=== PATIENT | female | born 1960 | race Two or more races ===

== ENCOUNTER 2017-09-09 21:53 | Emergency (ER) | payer MEDICAID ==
[~2017-09-09] VITALS: Ht 157.5 cm; Wt 154.2 kg
[2017-09-10 01:30] VITALS: BP 148/86
[2017-09-10] MEDS: BACLOFEN 10 MG TAB PO ONE (02:04)
== END 2017-09-10 02:27 | disposition home or self-care (01) ==
LOC: EDBD 21:53 → ER 21:53
DX: S13.9XXA Sprain of joints and ligaments of unspecified parts of neck, initial encounter (principal); S23.3XXA Sprain of ligaments of thoracic spine, initial encounter; Z88.6 Allergy status to analgesic agent; V43.52XA Car driver injured in collision with other type car in traffic accident, initial encounter; Y93.89 Activity, other specified; Y92.89 Other specified places as the place of occurrence of the external cause; Y99.8 Other external cause status
CPT/HCPCS: 70450; 72125; 72128

== ENCOUNTER 2020-11-23 14:27 | Inpatient (IN) | payer MEDICAID ==
[~2020-11-23] VITALS: Ht 152.4 cm; Wt 141.0 kg
[2020-11-23] MEDS ORDERED: SODIUM CHLORIDE 0.9% 1,000 ML IV ONE ×2 (15:00)
[2020-11-23] MEDS ORDERED: PROMETHAZINE HCL 25 MG/ML 1ML IV ONE (15:00)
[2020-11-23 16:33] LABS: Basophils # (auto) 0.1 10 ^3/uL (0-0.2); Basophils % (auto) 0.4 % (0.0-2.0); Eosinophils # (auto) 0 10 ^3/uL (0-0.8); Eosinophils % (auto) 0.1 % (0.0-7.0); Hematocrit 37.7 % (36.0-46.0); Hemoglobin 13.4 g/dL (12.2-16.2); Lymphocytes # (auto) 2.9 10 ^3/uL (0.4-5.4); Lymphocytes % (auto) 16.1 % (10.0-50.0); Mean Corpuscular Hemoglobin 30.4 pg (28.0-32.0); Mean Corpuscular Hgb Conc. 35.6 g/dL (32.0-36.0); Mean Corpuscular Volume 85.4 fL (80.0-100.0); Monocytes # (auto) 0 10 ^3/uL (0-1.3); Monocytes % (auto) 0.2 % (0.0-12.0); Neutrophils # (auto) 15.1 10 ^3/uL (1.6-8.6); Neutrophils % (auto) 83.2 % (37.0-80.0); Nucleated Red Blood Cells % 1.1 %; Red Blood Cells 4.41 10^6/uL (4.0-5.20); White Blood Cell 18.2 10^3/uL (4.4-10.8)
[2020-11-23 16:48] LABS: Albumin 2.8 g/dL (3.4-5.0); Potassium 3.3 mmol/L (3.5-5.1)
[2020-11-23 16:53] LABS: BUN/Creatinine Ratio 14.2; Bilirubin, Total 0.5 mg/dL (0.2-1.0)
[2020-11-23] MEDS ORDERED: POTASSIUM CHL 20MEQ/100ML 100 ML IV ONE (17:45)
[2020-11-23] MEDS ORDERED: D5W/ SOD CHL 0.9%/KCL 20MEQ 1,000 ML IV ONE (18:30)
[2020-11-23] MEDS ORDERED: ACETAMINOPHEN 325 MG TAB PO PRN (18:45)
[2020-11-23] MEDS ORDERED: MORPHINE SULFATE INJECTION 2 MG/ML SYRG IV PRN ×2 (18:45)
[2020-11-23] MEDS ORDERED: NITROGLYCERIN 0.4 MG SL TAB SL PRN (18:45)
[2020-11-23 20:53] LABS: Hematocrit 35.3 % (36.0-46.0); Hemoglobin 12.4 g/dL (12.2-16.2)
[2020-11-23] MEDS: PROMETHAZINE HCL 25 MG/ML 1ML IV PRN (21:38)
[2020-11-24] MEDS: METOCLOPRAMIDE HCL 5MG/ml INJ 2ml VIAL IV SCH ×4 (00:36→17:26)
[2020-11-24 00:44] VITALS: BP 139/70
[2020-11-24] MEDS ORDERED: AMLO-489 PO (01:17)
[2020-11-24] MEDS ORDERED: METO-159 PO (01:17)
[2020-11-24] MEDS ORDERED: DOXY100C2 PO (01:17)
[2020-11-24] MEDS ORDERED: ATO40T PO (01:17)
[2020-11-24] MEDS ORDERED: FAMO-12 PO (01:17)
[2020-11-24] MEDS ORDERED: LORA-483 PO (01:17)
[2020-11-24] MEDS ORDERED: MULT-551 OR (01:17)
[2020-11-24] MEDS ORDERED: OXYB5TAB61 PO (01:17)
[2020-11-24] MEDS ORDERED: LOSA-39 PO (01:17)
[2020-11-24] MEDS ORDERED: MONT10TA23 PO (01:17)
[2020-11-24] MEDS ORDERED: SEMA2INJ SC (01:17)
[2020-11-24] MEDS ORDERED: CHOL20007 PO (01:17)
[2020-11-24] MEDS ORDERED: METF-370 PO (01:17)
[2020-11-24] MEDS ORDERED: ALBU0.084 IN (01:17)
[2020-11-24] MEDS ORDERED: BECL80AE11 IN (01:17)
[2020-11-24] MEDS ORDERED: LEVO112T4 PO (01:17)
[2020-11-24] MEDS: ACCU-CHEK COMFORT CURVE STRIP VI SCH ×4 (06:39→21:18)
[2020-11-24] MEDS: InsuLIN REG 1unit/0.01ml Soln (100units/ml) SC SCH ×4 (06:39→21:18)
[2020-11-24] MEDS ORDERED: DEXTROSE (50%) 50ML SYRG IV PRN (06:45)
[2020-11-24] MEDS: PROMETHAZINE HCL 25 MG/ML 1ML IV PRN ×4 (09:26→22:06)
[2020-11-24] MEDS: hydrALAZINE HCL 20 MG/ML VL IV PRN ×2 (12:18→20:58)
[2020-11-24 13:00] VITALS: BP 193/94
[2020-11-24 13:32] LABS: Hematocrit 40.3 % (36.0-46.0); Hemoglobin 13.6 g/dL (12.2-16.2); Mean Corpuscular Hemoglobin 29.4 pg (28.0-32.0); Mean Corpuscular Hgb Conc. 33.8 g/dL (32.0-36.0); Mean Corpuscular Volume 87.1 fL (80.0-100.0); Red Blood Cells 4.63 10^6/uL (4.0-5.20); Red Cell Distribution Width 14.2 % (11.8-14.3); White Blood Cell 18.1 10^3/uL (4.4-10.8)
[2020-11-24 13:40] LABS: BUN/Creatinine Ratio 13.6; Basophils % (manual) 0 (0.0-2.0); Blast Cells 0; Calcium 7.6 mg/dL (8.5-10.1); Eosinophils % (manual) 0 (0-7); Metamyelocytes % 0; Potassium 3.5 mmol/L (3.5-5.1); Promyelocytes % 0; Reactive Lymphocytes 0
[2020-11-24 14:14] LABS: Band Neutrophils % (manual) 14; Lymphocytes % (manual) 7 (10.0-50.0); Monocytes % (manual) 4 (0-12); Myelocytes % 1
[2020-11-24] MEDS ORDERED: ONDANSETRON HCL 4 MG/2 ML VIAL IV PRN (18:15)
[2020-11-24] MEDS ORDERED: SOD CHL 0.9%/ KCL 20MEQ 1,000 ML IV ONE (18:15)
[2020-11-24] MEDS: SOD CHL 0.9%/ KCL 20MEQ 1,000 ML IV SCH (18:39)
[2020-11-24] MEDS ORDERED: cefTRIAXone 1GM/50ML D5W 50 ML IV ONE (18:45)
[2020-11-24] MEDS: ONDANSETRON HCL 4 MG/2 ML VIAL IV PRN (20:58)
[2020-11-24] MEDS: metroNIDAZOLE 500MG/100ML 100 ML IV SCH (21:48)
[2020-11-24 22:00] VITALS: BP 197/79
[2020-11-24 22:03] LABS: Urine Bacteria NONE SEEN /hpf (None Seen); Urine Blood TRACE /uL (Negative); Urine Hyaline Cast FEW /lpf (0 - 2); Urine Mucus FEW (None Seen); Urine Specific Gravity 1.021 (1.001-1.035); Urine WBC 4 /hpf (0 - 5)
[2020-11-24 22:16] VITALS: BP 155/81
[2020-11-25] MEDS: METOCLOPRAMIDE HCL 5MG/ml INJ 2ml VIAL IV SCH ×5 (00:04→23:51)
[2020-11-25] MEDS: SOD CHL 0.9%/ KCL 20MEQ 1,000 ML IV SCH ×3 (02:43→17:57)
[2020-11-25] MEDS: ONDANSETRON HCL 4 MG/2 ML VIAL IV PRN ×3 (03:10→17:19)
[2020-11-25] MEDS: metroNIDAZOLE 500MG/100ML 100 ML IV SCH ×3 (05:39→21:58)
[2020-11-25] MEDS: PROMETHAZINE HCL 25 MG/ML 1ML IV PRN ×2 (06:27→21:03)
[2020-11-25] MEDS: InsuLIN REG 1unit/0.01ml Soln (100units/ml) SC SCH ×4 (06:44→22:12)
[2020-11-25] MEDS: ACCU-CHEK COMFORT CURVE STRIP VI SCH ×4 (06:45→20:59)
[2020-11-25 07:32] LABS: Hematocrit 39.2 % (36.0-46.0); Hemoglobin 13.4 g/dL (12.2-16.2); Mean Corpuscular Hemoglobin 30.2 pg (28.0-32.0); Mean Corpuscular Hgb Conc. 34.1 g/dL (32.0-36.0); Mean Corpuscular Volume 88.5 fL (80.0-100.0); Red Blood Cells 4.43 10^6/uL (4.0-5.20); Red Cell Distribution Width 14.2 % (11.8-14.3); White Blood Cell 14.4 10^3/uL (4.4-10.8)
[2020-11-25 07:34] LABS: BUN/Creatinine Ratio 14.1; Calcium 7.5 mg/dL (8.5-10.1); Potassium 3.6 mmol/L (3.5-5.1)
[2020-11-25 07:38] LABS: Basophils % (manual) 0 (0.0-2.0); Blast Cells 0; Eosinophils % (manual) 0 (0-7); Promyelocytes % 0; Reactive Lymphocytes 0
[2020-11-25 08:11] LABS: Band Neutrophils % (manual) 8; Lymphocytes % (manual) 18 (10.0-50.0); Metamyelocytes % 1; Monocytes % (manual) 4 (0-12); Myelocytes % 2
[2020-11-25 09:00] VITALS: BP 193/84
[2020-11-25] MEDS: ENOXAPARIN SOD 40 MG/0.4 ML SYRINGE SC SCH (09:45)
[2020-11-25] MEDS: METOPROLOL SUCCINATE XL 50 MG TAB PO SCH (09:45)
[2020-11-25] MEDS: OXYBUTYNIN CHL 5 MG TAB PO SCH ×2 (09:45→20:58)
[2020-11-25] MEDS: LOSARTAN POTASSIUM 50 MG TAB PO SCH (09:46)
[2020-11-25] MEDS: FAMOTIDINE (10MG/ML) 2ML VL IV SCH ×2 (09:46→20:57)
[2020-11-25] MEDS: cefTRIAXone 1GM/50ML D5W 50 ML IV SCH (09:47)
[2020-11-25 10:30] VITALS: BP 193/84
[2020-11-25] MEDS ORDERED: ALPRAZolam 0.5 MG TAB PO PRN (11:30)
[2020-11-25 13:00] VITALS: BP 142/86
[2020-11-25] MEDS: ALBUTEROL SULF HFA 90MCG INH 200DOSE IN SCH ×2 (14:56→22:00)
[2020-11-25 17:00] VITALS: BP 143/79
[2020-11-25] MEDS: amLODIPine BESYLATE 5 MG TAB PO SCH (20:58)
[2020-11-25] MEDS: MONTELUKAST SODIUM 10 MG TAB PO SCH (20:58)
[2020-11-25 22:00] VITALS: BP 163/82
[2020-11-25] MEDS: INSULIN LANTUS (GLARGINE) 1 /0.01ml (100units/ml) SC SCH (22:09)
[2020-11-26] MEDS: ONDANSETRON HCL 4 MG/2 ML VIAL IV PRN ×3 (03:04→19:47)
[2020-11-26] MEDS: SOD CHL 0.9%/ KCL 20MEQ 1,000 ML IV SCH ×2 (03:04→12:16)
[2020-11-26] MEDS: METOCLOPRAMIDE HCL 5MG/ml INJ 2ml VIAL IV SCH ×3 (05:37→18:34)
[2020-11-26] MEDS: metroNIDAZOLE 500MG/100ML 100 ML IV SCH ×3 (05:37→22:09)
[2020-11-26] MEDS: InsuLIN REG 1unit/0.01ml Soln (100units/ml) SC SCH ×4 (05:38→22:42)
[2020-11-26] MEDS: ACCU-CHEK COMFORT CURVE STRIP VI SCH ×4 (05:38→22:41)
[2020-11-26 06:07] VITALS: BP 94/29
[2020-11-26] MEDS: LEVOTHYROXINE SODIUM 112 MCG TAB PO SCH (06:13)
[2020-11-26] MEDS: ALBUTEROL SULF HFA 90MCG INH 200DOSE IN SCH (06:42)
[2020-11-26 06:50] LABS: Hematocrit 37.2 % (36.0-46.0); Hemoglobin 13.1 g/dL (12.2-16.2); Mean Corpuscular Hemoglobin 30.7 pg (28.0-32.0); Mean Corpuscular Hgb Conc. 35.3 g/dL (32.0-36.0); Mean Corpuscular Volume 86.9 fL (80.0-100.0); Red Blood Cells 4.28 10^6/uL (4.0-5.20); Red Cell Distribution Width 14.3 % (11.8-14.3); White Blood Cell 15.6 10^3/uL (4.4-10.8)
[2020-11-26 07:17] LABS: Basophils % (manual) 0 (0.0-2.0); Blast Cells 0; Eosinophils % (manual) 0 (0-7); Metamyelocytes % 0; Myelocytes % 0; Promyelocytes % 0; Reactive Lymphocytes 0
[2020-11-26] MEDS: PROMETHAZINE HCL 25 MG/ML 1ML IV PRN ×3 (09:01→22:19)
[2020-11-26] MEDS ORDERED: ALBUTEROL SULF HFA 90MCG INH 200DOSE IN PRN (09:15)
[2020-11-26] MEDS ORDERED: LORazepam 2MG/ML-1ML VIAL IV PRN (09:30)
[2020-11-26] MEDS ORDERED: ENOXAPARIN SOD 40 MG/0.4 ML SYRINGE SC SCH (10:00)
[2020-11-26] MEDS: FAMOTIDINE (10MG/ML) 2ML VL IV SCH ×2 (10:04→22:11)
[2020-11-26] MEDS: ENOXAPARIN SOD 40 MG/0.4 ML SYRINGE SC SCH (10:04)
[2020-11-26] MEDS: cefTRIAXone 1GM/50ML D5W 50 ML IV SCH (10:04)
[2020-11-26] MEDS: OXYBUTYNIN CHL 5 MG TAB PO SCH ×2 (10:04→22:10)
[2020-11-26 10:05] LABS: Band Neutrophils % (manual) 5; Lymphocytes % (manual) 20 (10.0-50.0); Monocytes % (manual) 3 (0-12)
[2020-11-26] MEDS: LOSARTAN POTASSIUM 50 MG TAB PO SCH (10:05)
[2020-11-26] MEDS: METOPROLOL SUCCINATE XL 50 MG TAB PO SCH (10:06)
[2020-11-26 13:00] VITALS: BP 153/103
[2020-11-26] MEDS: ALPRAZolam 0.5 MG TAB PO SCH ×2 (13:55→22:10)
[2020-11-26 17:00] VITALS: BP 140/68
[2020-11-26 22:00] VITALS: BP 132/57
[2020-11-26] MEDS: MONTELUKAST SODIUM 10 MG TAB PO SCH (22:10)
[2020-11-26] MEDS: amLODIPine BESYLATE 5 MG TAB PO SCH (22:40)
[2020-11-26] MEDS: INSULIN LANTUS (GLARGINE) 1 /0.01ml (100units/ml) SC SCH (22:42)
[2020-11-27] MEDS: METOCLOPRAMIDE HCL 5MG/ml INJ 2ml VIAL IV SCH ×5 (00:28→23:46)
[2020-11-27] MEDS: SOD CHL 0.9%/ KCL 20MEQ 1,000 ML IV SCH ×4 (02:41→21:41)
[2020-11-27] MEDS: ONDANSETRON HCL 4 MG/2 ML VIAL IV PRN ×2 (02:42→19:24)
[2020-11-27] MEDS: metroNIDAZOLE 500MG/100ML 100 ML IV SCH ×3 (05:33→21:49)
[2020-11-27] MEDS: ALPRAZolam 0.5 MG TAB PO SCH ×3 (05:33→21:51)
[2020-11-27 06:15] LABS: Basophils # (auto) 0.1 10 ^3/uL (0-0.2); Basophils % (auto) 0.5 % (0.0-2.0); Eosinophils # (auto) 0 10 ^3/uL (0-0.8); Hematocrit 37.6 % (36.0-46.0); Hemoglobin 13.1 g/dL (12.2-16.2); Lymphocytes # (auto) 1.9 10 ^3/uL (0.4-5.4); Lymphocytes % (auto) 15.3 % (10.0-50.0); Mean Corpuscular Hemoglobin 30.5 pg (28.0-32.0); Mean Corpuscular Hgb Conc. 34.9 g/dL (32.0-36.0); Mean Corpuscular Volume 87.4 fL (80.0-100.0); Monocytes # (auto) 0.5 10 ^3/uL (0-1.3); Monocytes % (auto) 4.3 % (0.0-12.0); Neutrophils % (auto) 79.9 % (37.0-80.0); Nucleated Red Blood Cells % 0.3 %; Red Cell Distribution Width 14.2 % (11.8-14.3); White Blood Cell 12.5 10^3/uL (4.4-10.8)
[2020-11-27] MEDS: LEVOTHYROXINE SODIUM 112 MCG TAB PO SCH (06:17)
[2020-11-27] MEDS: ACCU-CHEK COMFORT CURVE STRIP VI SCH ×4 (06:17→21:41)
[2020-11-27] MEDS: InsuLIN REG 1unit/0.01ml Soln (100units/ml) SC SCH ×4 (06:18→21:42)
[2020-11-27 08:53] VITALS: BP 153/80
[2020-11-27] MEDS: OXYBUTYNIN CHL 5 MG TAB PO SCH ×2 (09:32→21:49)
[2020-11-27] MEDS: FAMOTIDINE (10MG/ML) 2ML VL IV SCH (09:32)
[2020-11-27] MEDS: cefTRIAXone 1GM/50ML D5W 50 ML IV SCH (09:32)
[2020-11-27] MEDS: LOSARTAN POTASSIUM 50 MG TAB PO SCH (09:33)
[2020-11-27] MEDS: METOPROLOL SUCCINATE XL 50 MG TAB PO SCH (09:33)
[2020-11-27] MEDS: ENOXAPARIN SOD 40 MG/0.4 ML SYRINGE SC SCH (09:34)
[2020-11-27 12:31] VITALS: BP 145/77
[2020-11-27] MEDS: PANTOPRAZOLE 40 MG/10 ML VIAL INJ IV SCH ×2 (13:12→21:49)
[2020-11-27] MEDS: SUCRALFATE 1 GM/10 ML ORAL SUSP PO SCH ×3 (13:12→21:49)
[2020-11-27] MEDS: PROMETHAZINE HCL 25 MG/ML 1ML IV PRN (14:20)
[2020-11-27 17:00] VITALS: BP 160/82
[2020-11-27] MEDS: MONTELUKAST SODIUM 10 MG TAB PO SCH (21:51)
[2020-11-27] MEDS: INSULIN LANTUS (GLARGINE) 1 /0.01ml (100units/ml) SC SCH (21:52)
[2020-11-27 22:00] VITALS: BP 158/84
[2020-11-27] MEDS: amLODIPine BESYLATE 5 MG TAB PO SCH (22:04)
[2020-11-28 05:00] VITALS: BP 130/68
[2020-11-28] MEDS: metroNIDAZOLE 500MG/100ML 100 ML IV SCH ×3 (06:12→21:21)
[2020-11-28] MEDS: SUCRALFATE 1 GM/10 ML ORAL SUSP PO SCH ×4 (06:12→21:22)
[2020-11-28] MEDS: LEVOTHYROXINE SODIUM 112 MCG TAB PO SCH (06:12)
[2020-11-28] MEDS: ALPRAZolam 0.5 MG TAB PO SCH ×3 (06:12→21:22)
[2020-11-28] MEDS: METOCLOPRAMIDE HCL 5MG/ml INJ 2ml VIAL IV SCH ×3 (06:12→17:43)
[2020-11-28] MEDS: InsuLIN REG 1unit/0.01ml Soln (100units/ml) SC SCH ×4 (06:23→21:34)
[2020-11-28] MEDS: ACCU-CHEK COMFORT CURVE STRIP VI SCH ×4 (06:23→21:33)
[2020-11-28 08:00] VITALS: BP 148/75
[2020-11-28 09:03] VITALS: BP 130/68
[2020-11-28] MEDS: PANTOPRAZOLE 40 MG/10 ML VIAL INJ IV SCH ×2 (09:37→21:22)
[2020-11-28] MEDS: METOPROLOL SUCCINATE XL 50 MG TAB PO SCH (09:38)
[2020-11-28] MEDS: OXYBUTYNIN CHL 5 MG TAB PO SCH ×2 (09:38→21:22)
[2020-11-28] MEDS: LOSARTAN POTASSIUM 50 MG TAB PO SCH (09:39)
[2020-11-28] MEDS: ENOXAPARIN SOD 40 MG/0.4 ML SYRINGE SC SCH (09:39)
[2020-11-28] MEDS: cefTRIAXone 1GM/50ML D5W 50 ML IV SCH (09:39)
[2020-11-28] MEDS: PROMETHAZINE HCL 25 MG/ML 1ML IV PRN (09:47)
[2020-11-28] MEDS: SOD CHL 0.9%/ KCL 20MEQ 1,000 ML IV SCH (14:10)
[2020-11-28 16:00] VITALS: BP 170/106
[2020-11-28] MEDS: hydrALAZINE HCL 20 MG/ML VL IV PRN (16:05)
[2020-11-28] MEDS: MONTELUKAST SODIUM 10 MG TAB PO SCH (21:22)
[2020-11-28] MEDS: INSULIN LANTUS (GLARGINE) 1 /0.01ml (100units/ml) SC SCH (21:34)
[2020-11-28] MEDS: amLODIPine BESYLATE 5 MG TAB PO SCH (21:36)
[2020-11-28 22:00] VITALS: BP 153/72
[2020-11-29] MEDS: METOCLOPRAMIDE HCL 5MG/ml INJ 2ml VIAL IV SCH ×3 (00:03→12:21)
[2020-11-29 05:00] VITALS: BP 128/66
[2020-11-29] MEDS: metroNIDAZOLE 500MG/100ML 100 ML IV SCH ×2 (06:23→14:00)
[2020-11-29] MEDS: LEVOTHYROXINE SODIUM 112 MCG TAB PO SCH (06:23)
[2020-11-29] MEDS: SUCRALFATE 1 GM/10 ML ORAL SUSP PO SCH ×2 (06:23→12:20)
[2020-11-29] MEDS: ALPRAZolam 0.5 MG TAB PO SCH ×2 (06:23→14:12)
[2020-11-29] MEDS: InsuLIN REG 1unit/0.01ml Soln (100units/ml) SC SCH ×3 (06:33→12:15)
[2020-11-29] MEDS: ACCU-CHEK COMFORT CURVE STRIP VI SCH ×2 (06:33→12:07)
[2020-11-29] MEDS: SOD CHL 0.9%/ KCL 20MEQ 1,000 ML IV SCH (06:34)
[2020-11-29 08:00] VITALS: BP 126/64
[2020-11-29] MEDS: cefTRIAXone 1GM/50ML D5W 50 ML IV SCH (10:04)
[2020-11-29] MEDS: OXYBUTYNIN CHL 5 MG TAB PO SCH (10:05)
[2020-11-29] MEDS: ENOXAPARIN SOD 40 MG/0.4 ML SYRINGE SC SCH (10:05)
[2020-11-29] MEDS: METOPROLOL SUCCINATE XL 50 MG TAB PO SCH (10:05)
[2020-11-29] MEDS: LOSARTAN POTASSIUM 50 MG TAB PO SCH (10:06)
[2020-11-29] MEDS: PANTOPRAZOLE 40 MG/10 ML VIAL INJ IV SCH (10:06)
[2020-11-29 12:00] VITALS: BP 141/70
[2020-11-29] MEDS: HYDROCORTISONE ACET 25 MG RECTAL SUPP PR ONE ×2 (12:45→14:07)
[2020-11-29] MEDS ORDERED: PANT40TA2 PO (12:51)
[2020-11-29] MEDS ORDERED: SUCR1SUS5 PO (12:51)
[2020-11-29] MEDS ORDERED: ONDA-144 PO (12:51)
[2020-11-29] MEDS ORDERED: HYDR4CRE35 PR (12:51)
[2020-11-29 13:48] VITALS: BP 126/64
[2020-11-29] MEDS ORDERED: PROM25TA5 PO (15:53)
== END 2020-11-29 14:28 | disposition home or self-care (01) | DRG 249 ==
LOC: ER 14:27 → EDUNIT# 14:27 → EDBD 14:27 → OVERFLOW 18:34 → EAST 21:57
PROVIDERS: ADMIT Hospitalist; ATTEND Hospitalist
DX: R11.2 Nausea with vomiting, unspecified (principal); N17.9 Acute kidney failure, unspecified; C50.919 Malignant neoplasm of unspecified site of unspecified female breast; E66.2 Morbid (severe) obesity with alveolar hypoventilation; E44.1 Mild protein-calorie malnutrition; D72.829 Elevated white blood cell count, unspecified; E03.9 Hypothyroidism, unspecified; E11.9 Type 2 diabetes mellitus without complications; I11.9 Hypertensive heart disease without heart failure; F41.9 Anxiety disorder, unspecified; T45.1X5A Adverse effect of antineoplastic and immunosuppressive drugs, initial encounter; Z82.49 Family history of ischemic heart disease and other diseases of the circulatory system; Z83.3 Family history of diabetes mellitus; Y92.89 Other specified places as the place of occurrence of the external cause; Z20.822 Contact with and (suspected) exposure to COVID-19; Z88.6 Allergy status to analgesic agent; Z79.84 Long term (current) use of oral hypoglycemic drugs
CPT/HCPCS: 36415; 71045; 74176; 80048; 80053; 81001; 82962; 84484; 85007; 85014; 85018; 85025; 85027; 85048; 87040; 87045; 87426; 87427; 87493; 94640; 96361; 96374; C9113; G0378; J0696; J1815; J2405; J3480; J3490

== ENCOUNTER 2025-06-15 12:13 | Inpatient (IN) | payer MEDICARE, MEDICAID ==
[~2025-06-15] VITALS: Ht 157.5 cm; Wt 179.2 kg
[~2025-06-15 12:13] MED LIST: ALBU0.084 IN; AMLO1TAB22 PO; ATOR-507 PO; BECL80AE11 IN; CHOL20007 PO; FAMO-12 PO; HYDR4CRE35 PR; LEVO112T4 PO; LORA-483 PO; LOSA-535 PO; METF-370 PO; METO-159 PO; MONT10TA23 PO; MULT-551 OR; ONDA-144 PO; OXYB5TAB14 PO; PANT40TA2 PO; PROM25TA10 PO; SEMA2INJ SC; SUCR1SUS5 PO
--- NOTE | 2025-06-15 12:32 | ED.PDOC ---
History of Present Illness HPI Comments This is a 65 year old female presenting to the ED with chief complaint of abnormal labs. Patient reports that she had blood work done on Sunday, receiving a call today from her Oncologist and PCP regarding results. Patient relays that she was told her Potassium was at 6.5 and advised her to come to the ED for further evaluation. Patient denies any chest pain, SOB, dizziness, N/V, syncope, or abdominal pain. Chief Complaint: Abnormal LAB's Time Seen by MD: 12:30 Reviewed Notes: Nurses Notes, Medications, Allergies Allergies: Coded Allergies: Codeine (Verified Allergy, Unknown, 09/09/17) Home Meds Active Scripts Promethazine Hcl (Promethazine Hcl) 25 Mg Tab, 1 TAB PO Q6HPRN, #20 TAB Prov:BERENICE CEDEÑO MD 11/29/20 Hydrocortisone (Rectal) (Hydrocortisone) 1 % Cre, 1 % SD BID PRN, #1 CRE Prov:BERENICE CEDEÑO MD 11/29/20 Ondansetron (Zofran) 4 Mg Tab, 1 TAB PO Q6HR, #20 TAB Prov:BERENICE CEDEÑO MD 11/29/20 Sucralfate (Carafate) 1 Gm/10 Ml Mami, 10 ML PO BID, #120 ML 1 Refill Prov:BERENICE CEDEÑO MD 11/29/20 Pantoprazole Sodium Sesquihydr (Protonix) 40 Mg Tab, 40 MG PO DAILY, #30 TAB Prov:BERENICE CEDEÑO MD 11/29/20 Reported Medications Multiple Vitamins W/ Minerals (Womens 50+ Multi Vitamin) Vit/Min Tab, 1 MIN OR, TAB 11/24/20 Cholecalciferol (VITAMIN D3) 2,000 Unit Tab, 1 TAB PO DAILY, #30 TAB 5 Refills 11/24/20 Amlodipine Besylate (Amlodipine Besylate) 5 Mg Tab, 5 MG PO BID for 30 Days, MG 11/24/20 Montelukast Sodium (Singulair) 10 Mg Tab, 10 MG PO DAILY, TAB 11/24/20 Losartan Potassium (Losartan Potassium) 100 Mg Tab, 100 MG PO BID for 30 Days, MG 11/24/20 Metoprolol Tartrate (Metoprolol Tartrate) 100 Mg Tab, 100 MG PO BID for 30 Days, MG 11/24/20 Albuterol Sulfate (Albuterol Sulfate) 0.083 % Neb, 0.083 % IN BID, INH 11/24/20 Beclomethasone Dipropionate (Qvar Redihaler) 80 Mcg/Act Aer, 80 MCG IN BID, AER 11/24/20 Semaglutide (Ozempic) 2 Mg/1.5 Ml Inj, 1 MG SC, INJ 11/24/20 Atorvastatin Calcium (Lipitor) 40 Mg Tab, 1 TAB PO DAILY, #30 TAB 5 Refills 11/24/20 Loratadine (CLARITIN TABLET) 10 Mg Tb, 10 MG PO DAILY, TAB 11/24/20 Famotidine (Famotidine) 20 Mg Tab, 20 MG PO DAILY for 30 Days, MG 11/24/20 Levothyroxine Sodium (Levothyroxine Sodium) 112 Mcg Tab, 112 MCG PO QAM for 30 Days, MCG 11/24/20 Oxybutynin Chloride (Oxybutynin Chloride) 5 Mg Tab, 5 MG PO BID, TAB 11/24/20 Metformin Hydrochloride (Metformin Hcl) 500 Mg Tab, 500 MG PO IBID for 30 Days, MG 11/24/20 Information Source: Patient, Relative Mode of Arrival: Wheelchair Severity: Moderate Timing: Hours Duration: Since onset Prehospital treatment: None Medication Refill: For: Other (Abnormal labs) Past Medical History PAST MEDICAL HISTORY: Cancer (Breast), DM, High Lipids, HTN, Thyroid Past Medical History (Other): Lymphedema Surgical History: Tonsillectomy Surgical History (Other): Lumpectomy SMT MACHINE OPERATOR History: No Pertinent SMT MACHINE OPERATOR History Family History Family History: Reviewed,noncontributory to illness, Family hx of Cancer Social History Smoker: Non-Smoker Alcohol: Denies ETOH Use Drugs: Denies Drug Use Lives In: Home Constitutional: denies: chills, diaphoresis, fatigue, fever, malaise, sweats, weakness, others EENTM: denies: blurred vision, double vision, ear bleeding, ear discharge, ear drainage, ear pain, ear ringing, eye pain, eye redness, hearing loss, mouth pain, mouth swelling, nasal discharge, nose bleeding, nose congestion, nose pain, photophobia, tearing, throat pain, throat swelling, voice changes, others Respiratory: denies: cough, hemoptysis, orthopnea, SOB at rest, shortness of breath, SOB with excertion, stridor, wheezing, others Cardiovascular: denies: chest pain, dizzy spells, diaphoresis, Dyspnea on exertion, edema, irregular heart beat, left arm pain, lightheadedness, palpitations, PND, syncope, others Gastrointestinal: denies: abdomen distended, abdominal pain, blood streaked bowels, constipated, diarrhea, dysphagia, difficulty swallowing, hematemesis, melena, nausea, poor appetite, poor fluid intake, rectal bleeding, rectal pain, vomiting, others Genitourinary: denies: abnormal vagina bleeding, burning, dyspareunia, dysuria, flank pain, frequency, hematuria, incontinence, pain, , vagina discharge, urgency, others Neurological: denies: dizziness, fainting, headache, left sided numbness, left sided weakness, numbness, paresthesia, pre-existing deficit, right sided numbness, right sided weakness, seizure, speech problems, tingling, tremors, weakness, others Musculoskeletal: denies: back pain, gout, joint pain, joint swelling, muscle pain, muscle stiffness, neck pain, others Integumetry: denies: bruises, change in color, change in hair/nails, dryness, laceration, lesions, lumps, rash, wounds, others Allergic/Immunocompromised: denies: Difficulty Healing, Frequent Infections, Hives, Itching, others Hematologic/Lymphatic: denies: anemia, blood clots, easy bleeding, easy bruising, swollen glands, others Endocrine: denies: excessive hunger, excessive sweating, excessive thirst, excessive urination, flushing, intolerance to cold, intolerance to heat, unexplained weight gain, unexplained weight loss, others Psychiatric: denies: anxiety, bipolar disorder, depression, hopeless, panic disorder, schizophrenia, sleepless, suicidal, others All Other Systems: Reviewed and Negative Physical Exam General Appearance: No Apparent Distress, Obese HEENT: Normal ENT Inspection, Pharynx Normal, TMs Normal Neck: Full Range of Motion, Non-Tender, Normal, Normal Inspection Respiratory: Chest Non-Tender, Lungs Clear, No Accessory Muscle Use, No Respiratory Distress, Normal Breath Sounds Cardiovascular: No Edema, No JVD, No Murmur, No Gallop, Normal Peripheral Pulses, Regular Rate/Rhythm Breast Exam: Deferred Gastrointestinal: No Organomegaly, Non Tender, No Pulsatile Mass, Normal Bowel Sounds, Soft Genitalia: Deferred Pelvic: Deferred Rectal: Deferred Extremities: No calf tenderness, Normal capillary refill, Pedal edema Musculoskeletal : Apperance: Normal Neurologic: Alert, casing operator II-XII nml as Tested, No Motor Deficits, Normal Affect, Normal Mood, No Sensory Deficits Cerebellar Function: Normal Reflexes: Normal Skin: Dry, Normal Color, Warm Lymphatic: No Adenopathy Was a procedure done? Was a procedure done?: No Differential Dx Considerations may include: Hyperkalemia, acute renal failure, generalized weakness X-Ray, Labs, Meds, VS Vital Signs Date Time Temp Pulse Resp B/P (MAP) Pulse Ox O2 Delivery O2 Flow Rate FiO2 06/15/25 12:17 97.6 75 17 133/103 96 97.6 Lab Test 06/15/25 12:40 Range/Units White Blood Count 5.7 4.4-10.8 10^3/uL Red Blood Count 3.73 L 4.0-5.20 10^6/uL Hemoglobin 11.5 L 12.2-16.2 g/dL Hematocrit 35.2 L 36.0-46.0 % Mean Corpuscular Volume 94.5 80.0-100.0 fL Mean Corpuscular Hemoglobin 30.9 28.0-32.0 pg Mean Corpuscular Hemoglobin Concent 32.7 32.0-36.0 g/dL Red Cell Distribution Width 14.7 H 11.8-14.3 % Platelet Count 263 140-450 10^3/uL Mean Platelet Volume 7.2 6.9-10.8 fL Neutrophils (%) (Auto) 81.5 H 37.0-80.0 % Lymphocytes (%) (Auto) 10.2 10.0-50.0 % Monocytes (%) (Auto) 4.5 0.0-12.0 % Eosinophils (%) (Auto) 3.0 0.0-7.0 % Basophils (%) (Auto) 0.8 0.0-2.0 % Neutrophils # (Auto) 4.6 1.6-8.6 10 ^3/uL Lymphocytes # (Auto) 0.6 0.4-5.4 10 ^3/uL Monocytes # (Auto) 0.3 0-1.3 10 ^3/uL Eosinophils # (Auto) 0.2 0-0.8 10 ^3/uL Basophils # (Auto) 0 0-0.2 10 ^3/uL Nucleated Red Blood Cells 0.3 % Sodium Level 142 136-145 mmol/L Potassium Level 5.9 *H 3.5-5.1 mmol/L Chloride Level 113 H 98-107 mmol/L Carbon Dioxide Level 20 20-31 mmol/L Anion Gap 9 5-15 Blood Urea Nitrogen 26 H 9-23 mg/dL Creatinine 1.31 H 0.550-1.02 mg/dL Glomerular Filtration Rate Calc 45 >90 mL/min BUN/Creatinine Ratio 19.8 10.0-20.0 Serum Glucose 253 H 74-106 mg/dL Calcium Level 9.7 8.7-10.4 mg/dL The patient's CBC is within normal limits The chemistry panel shows hyperkalemia at 5.9 The BUN is 26 and the creatinine is 1.31 The patient is being admitted at this time The patient is being given sodium bicarbonate, calcium chloride, insulin and dextrose The patient is being admitted Images Reviewed?: Images reviewed and evaluated by me Time of 1ST Reevaluation: 13:52 Reevaluation 1ST: Unchanged Patient Education/Counseling: Diagnosis, Treatment, Prognosis Family Education/Counseling: Diagnosis, Treatment, Prognosis SEPSIS Sepsis Screen Date sepsis recognized/suspect: Jun 15, 2025 Time Sepsis recognized/suspect: 9 Recent Procedure: No On Antibiotic Therapy: No Respiratory Rate >20: No Heart Rate >90: No Temp<36 C (96.8 F) or >38.3 C: No SBP <90 or MAP <65 mmHG: No New Acute Mental Status Change: No Is the patient on CPAP, BIPAP,: No Physician Orders Urinalysis (06/15/25 13:33) Heplock Iv (06/15/25 13:33) Lettuce Cutter (06/15/25 13:33) Blood Pressure (06/15/25 13:33) Pulse Oximetry (06/15/25 13:33) Electrocardigram (06/15/25 13:33) Calcium Gluc 1,000mg/50ml-Ns (06/15/25 13:45) Vital Signs Date Time Temp Pulse Resp B/P (MAP) Pulse Ox O2 Delivery O2 Flow Rate FiO2 06/15/25 12:17 97.6 75 17 133/103 96 97.6 Laboratory Tests Test 06/15/25 12:40 White Blood Count 5.7 10^3/uL (4.4-10.8) Departure 1 Departure Time of Disposition: 13:51 Impression: Primary Impression: Hyperkalemia Disposition: 09 ADMITTED INPATIENT Admit to: Tele Condition: Fair Critical Care Note Critical Care Time?: Yes (35 min-critical care time only) Stability Stability form required: Yes Unstable for transfer: Telemetry monitoring (Telemetry monitoring required), ED Physician Assesment (Clinical assesment) Heart Score Heart Score: Heart Score Response (Comments) Value History N/A 0 EKG N/A 0 Age N/A 0 Risk Factors N/A 0 Troponin N/A 0 Total 0 I personally scribed for NATHAN BHATT MD ([email or web address]) on 06/15/25 at 12:32. Electronically submitted by Pedrito Squires ([email or web address]). NATHAN BHATT MD Jun 15, 2025 12:32
[2025-06-15 13:01] LABS: Hematocrit 35.2 % (36.0-46.0); Hemoglobin 11.5 g/dL (12.2-16.2); Mean Corpuscular Hemoglobin 30.9 pg (28.0-32.0); Mean Corpuscular Volume 94.5 fL (80.0-100.0); Nucleated Red Blood Cells % 0.3 %
[2025-06-15 13:08] LABS: Sodium 142 mmol/L (136-145)
[2025-06-15 13:09] LABS: Anion Gap 9 (5-15); Calcium 9.7 mg/dL (8.7-10.4)
[2025-06-15 13:14] LABS: BUN/Creatinine Ratio 19.8 (10.0-20.0)
[2025-06-15 13:20] LABS: Blood Urea Nitrogen 26 mg/dL (9-23); Glucose 253 mg/dL (74-106)
[2025-06-15 13:22] LABS: Carbon Dioxide 20 mmol/L (20-31); Chloride 113 mmol/L (98-107)
[2025-06-15 13:32] LABS: Potassium 5.9 mmol/L (3.5-5.1)
--- NOTE | 2025-06-15 13:59 | DVHHPRES ---
History of Present Illness Resident Creating Document: DAYAMI PIMENTEL RESIDENT History of Present Illness Bre Camargo, A 65?year?old female with past medical Cancer (Breast), diabetes mellitus type 2, High Lipids, HTN, hypothyroidism and Tonsillectomy and breast Lumpectomy presents to the ED after being contacted by her oncologist and PCP about abnormal labs drawn Sunday, specifically a reported potassium level of 6.5, and was advised to come in for further evaluation; she has a history of lymphedema, no pertinent CINDER PITMAN history, and denies chest pain, shortness of breath, dizziness, nausea, vomiting, syncope, or abdominal pain. PMHx: Cancer (Breast), diabetes mellitus type 2, High Lipids, HTN, hypothyroidism PSHx: Tonsillectomy and breast Lumpectomy Family history: Reviewed, noncontributory to illness, Family hx of Cancer Social history: Patient denies the ETOH, recreational drugs or smoking. Lives at home. Review of Systems Constitutional: No: Fever, Chills, Sweats, Weakness, Malaise, Other Eyes: No: Pain, Vision change, Conjunctivae inflammation, Eyelid inflammation, Other, Redness ENT: No: Ear pain, Ear discharge, Nose pain, Nose discharge, Nose congestion, Mouth pain, Mouth swelling, Throat pain, Throat swelling, Other Respiratory: No: Cough, Dry, Shortness of breath, SOB with excertion, Wheezing, Hemoptysis, Pleuritic Pain, Sputum, Wheezing, Other Cardiovascular: No: Chest Pain, Palpitations, Orthopnea, Paroxysmal Noc. Dyspnea, Edema, Lt Headedness, Other Gastrointestinal: No: Nausea, Vomiting, Abdominal Pain, Diarrhea, Constipation, Melena, Hematochezia, Other Genitourinary: No Dysuria, No Frequency, No Incontinence, No Hematuria, No Retention, No Other Musculoskeletal: No: other, neck pain, shoulder pain, arm pain, back pain, hand pain, leg pain, foot pain Skin: No: Rash, Lesions, Jaundice, Bruising, Other Neurological: No: Weakness, Numbness, Incoordination, Change in speech, Confusion, Seizures, Other Allergies: Coded Allergies: Codeine (Verified Allergy, Unknown, 09/09/17) Medications Current Medications Medications Dose Ordered Sig/Bonnie Route Start Time Stop Time Status Last Admin Dose Admin Sodium Chloride 1,000 ml @ 120 mls/hr Q8H20M IV 06/15/25 14:00 UNV Acetaminophen/ Hydrocodone Bitart 1 tab Q4HP PRN PO 06/15/25 14:00 UNV Ondansetron HCl 4 mg Q4HP PRN IV 06/15/25 14:00 UNV Docusate Sodium 100 mg BIDPRN PRN PO 06/15/25 14:00 UNV Acetaminophen 650 mg Q6HP PRN PO 06/15/25 14:00 UNV Morphine Sulfate 2 mg Q4HPRN PRN IV 06/15/25 14:00 UNV Nitroglycerin 0.4 mg Q5MINP PRN SL 06/15/25 14:00 UNV Morphine Sulfate 2 mg Q30M PRN IV 06/15/25 14:00 UNV Exam Vital Signs Vital Signs Date Time Temp Pulse Resp B/P (MAP) Pulse Ox O2 Delivery O2 Flow Rate FiO2 06/15/25 12:17 97.6 75 17 133/103 96 97.6 General Appearance: Alert, Oriented X3, Cooperative, No acute distress HEENT: Atraumatic, PERRLA, EOMI, Other (dry mucosa) Respiratory: Clear to auscultation, Normal air movement Cardiovascular: Regular rate, Normal S1, Normal S2, No murmurs Abdominal: Normal bowel sounds, Soft, No tenderness, No hepatospenomegaly, No masses Extremities: No clubbing, No cyanosis, No edema, Normal pulses, No tenderness/swelling Skin: No rashes, No breakdown, No significant lesion Neuro: Normal gait, Normal speech, Strength at 5/5 X4 ext, Normal tone, Sensation intact, Cranial nerves 3-12 NL, Reflexes 2+ Psych/Mental Status: Mental status NL, Mood NL Labs/Xrays Labs Test 06/15/25 12:40 Range/Units White Blood Count 5.7 4.4-10.8 10^3/uL Red Blood Count 3.73 L 4.0-5.20 10^6/uL Hemoglobin 11.5 L 12.2-16.2 g/dL Hematocrit 35.2 L 36.0-46.0 % Mean Corpuscular Volume 94.5 80.0-100.0 fL Mean Corpuscular Hemoglobin 30.9 28.0-32.0 pg Mean Corpuscular Hemoglobin Concent 32.7 32.0-36.0 g/dL Red Cell Distribution Width 14.7 H 11.8-14.3 % Platelet Count 263 140-450 10^3/uL Mean Platelet Volume 7.2 6.9-10.8 fL Neutrophils (%) (Auto) 81.5 H 37.0-80.0 % Lymphocytes (%) (Auto) 10.2 10.0-50.0 % Monocytes (%) (Auto) 4.5 0.0-12.0 % Eosinophils (%) (Auto) 3.0 0.0-7.0 % Basophils (%) (Auto) 0.8 0.0-2.0 % Neutrophils # (Auto) 4.6 1.6-8.6 10 ^3/uL Lymphocytes # (Auto) 0.6 0.4-5.4 10 ^3/uL Monocytes # (Auto) 0.3 0-1.3 10 ^3/uL Eosinophils # (Auto) 0.2 0-0.8 10 ^3/uL Basophils # (Auto) 0 0-0.2 10 ^3/uL Nucleated Red Blood Cells 0.3 % Sodium Level 142 136-145 mmol/L Potassium Level 5.9 *H 3.5-5.1 mmol/L Chloride Level 113 H 98-107 mmol/L Carbon Dioxide Level 20 20-31 mmol/L Anion Gap 9 5-15 Blood Urea Nitrogen 26 H 9-23 mg/dL Creatinine 1.31 H 0.550-1.02 mg/dL Glomerular Filtration Rate Calc 45 >90 mL/min BUN/Creatinine Ratio 19.8 10.0-20.0 Serum Glucose 253 H 74-106 mg/dL Calcium Level 9.7 8.7-10.4 mg/dL SEPSIS Sepsis Screen Date sepsis recognized/suspect: Jun 15, 2025 Time Sepsis recognized/suspect: 1219 Recent Procedure: No On Antibiotic Therapy: No Respiratory Rate >20: No Heart Rate >90: No Temp<36 C (96.8 F) or >38.3 C: No SBP <90 or MAP <65 mmHG: No New Acute Mental Status Change: No Is the patient on CPAP, BIPAP,: No Physician Orders Urinalysis (06/15/25 13:33) Heplock Iv (06/15/25 13:33) Dry Kiln Operator Helper (06/15/25 13:33) Blood Pressure (06/15/25 13:33) Pulse Oximetry (06/15/25 13:33) Electrocardigram (06/15/25 13:33) Calcium Gluc 1,000mg/50ml-Ns (06/15/25 13:45) Admit (06/15/25 13:52) Allergies (06/15/25 13:52) Code Status (06/15/25 13:52) Renal Standard(2gna,3gk,Lopho) (06/15/25 Dinner) Sodium Chloride 0.9% (06/15/25 14:00) Hydrocodone-Acet 5/325mg Tab ([place] 5/32 (06/15/25 14:00) Ondansetron Hcl (Zofran) (06/15/25 14:00) Docusate Sodium Capsule (Colace Capsule) (06/15/25 14:00) Complete Blood Count (06/16/25 04:00) Comprehensive Metabolic Panel (06/16/25 04:00) Condition: Serious (06/15/25 13:52) Acetaminophen Tablet (Tylenol Tablet) (06/15/25 14:00) Morphine Sulfate Injection (06/15/25 14:00) Nitroglycerin Sublingual (Ntrostat Subli (06/15/25 14:00) Morphine Sulfate Injection (06/15/25 14:00) Oxygen By Nasal Cannula (06/15/25 13:52) Stat Ekg For Chest Pain (06/15/25 13:52) Notify Md Of Changes From Base (06/15/25 13:52) Director Payer For 24 Hours (06/15/25 13:52) Emergency Dysrhythmia Protocol (06/15/25 13:52) Rhythm Strips Once Every Shift (06/15/25 13:52) Potassium (06/15/25 17:56) Insulin R 10units Iv X One (06/15/25 14:00) Dextrose 50% 1amp=50ml (06/15/25 14:00) Sod Bicarb 50ml=1amp (06/15/25 14:00) Lasix 20mg Iv X One (06/15/25 14:00) Vital Signs Date Time Temp Pulse Resp B/P (MAP) Pulse Ox O2 Delivery O2 Flow Rate FiO2 06/15/25 12:17 97.6 75 17 133/103 96 97.6 Laboratory Tests Test 06/15/25 12:40 White Blood Count 5.7 10^3/uL (4.4-10.8) Assessment/Plan Assessment/Plan # acute hyperkalemia moderate to severe: Was initially 6.5, repeat 5.9, 5.7, trending down, continue treatment, correct other electrolytes. keep the patient on telemetry. # LIDYA due to VMN in on the top of CKD stage IIIb: avoid nephrotoxins, close input output monitoring and gentle hydration with IV fluid, Trend renal functions # Type II diabetes mellitus: Patient is on metformin 500 mg daily, on insulin 2 5 units bedtime Lantus, check HGB A1c, continue basal bolus, hold metformin. # hypothyroidism: 125 mcg daily continue # dyslipidemia: Managed with atorvastatin 40 mg continue # hypertension: On amlodipine 10 mg daily continue, target blood pressure 130 /80 or below # atopy/seasonal allergy, on montelukast 10 mg tab daily at bedtime, continue # asthma : As needed albuterol, breathing comfortably in the room air no wheezing noted. Diet: Renal diet with CC PUD prophylaxis: protonix 40mg/not needed DVT prophylaxis: lovenox/brisk movement. Barriers to discharge: Medical diagnosis and management in progress. Patient lives with self / family. Independent/need supportive device/wheelchair/person support for ADL. PT and SW consult as needed. PCP: Dr. Coombs Specialist Relevant To Admission: Nephrology, not consulted. Case discussed with Dr. Monge. Code Status: Full Code. Discussion on goals of care and care plan needed total 29 minutes bedside. Plan discussed with: Patient My Orders Orders - DAYAMI PIMENTEL RESIDENT Procedure Category Date Status Time Admit ADMIT 06/15/25 Transmitted 13:52 Allergies JOSE MIGUEL 06/15/25 In Process 13:52 Code Status CODE 06/15/25 Transmitted 13:52 Renal DIET 06/15/25 Transmitted Standard(2gna,3gk,Lopho) Dinner Sodium Chloride 0.9% PHA 06/15/25 Logged 14:00 Hydrocodone-Acet PHA 06/15/25 Logged 5/325mg Tab ([place] 14:00 Ondansetron Hcl PHA 06/15/25 Logged (Zofran) 14:00 Docusate Sodium PHA 06/15/25 Logged Capsule (Colace 14:00 Complete Blood Count LAB 06/16/25 Verified 04:00 Comprehensive LAB 06/16/25 Verified Metabolic Panel 04:00 Condition: Serious [facility] 06/15/25 In Process 13:52 Acetaminophen Tablet [facility] 06/15/25 Logged (Tylenol Tablet) 14:00 Morphine Sulfate [facility] 06/15/25 Logged Injection 14:00 Nitroglycerin [facility] 06/15/25 Logged Sublingual (Ntrostat 14:00 Morphine Sulfate [facility] 06/15/25 Logged Injection 14:00 Oxygen By Nasal RT 06/15/25 Transmitted Cannula 13:52 Stat Ekg For Chest [facility] 06/15/25 In Process Pain 13:52 Notify Of Changes [facility] 06/15/25 In Process From Base 13:52 Director Payer For [facility] 06/15/25 In Process 24 Hours 13:52 Emergency Dysrhythmia [facility] 06/15/25 In Process Protocol 13:52 Rhythm Strips Once [facility] 06/15/25 In Process Every Shift 13:52 Potassium LAB 06/15/25 Verified 17:56 Insulin R 10units Iv [facility] 06/15/25 Verified X One 14:00 Dextrose 50% 1amp=50ml [facility] 06/15/25 Verified 14:00 Sod Bicarb 50ml=1amp [facility] 06/15/25 Verified 14:00 Lasix 20mg Iv X One [facility] 06/15/25 Verified 14:00 Date of Service: Jun 15, 2025 Billing Provider: BACILIO SNYDER MD Common Visit Codes: [id number] INP/OBS CARE (HIGH) Secondary Visit Codes: [id number] CARE PLAN 30 MINUTES DAYAMI PIMENTEL RESIDENT Jun 15, 2025 13:59
[2025-06-15] MEDS ORDERED: ACETAMINOPHEN 325 MG TAB PO PRN (14:00)
[2025-06-15] MEDS ORDERED: HYDROcodone-ACET 5/325MG TAB PO PRN (14:00)
[2025-06-15] MEDS ORDERED: MORPHINE SULFATE INJ 2 MG/ml SYRG IV PRN ×2 (14:00)
[2025-06-15] MEDS ORDERED: DOCUSATE SOD 100 MG CAP PO PRN (14:00)
[2025-06-15] MEDS ORDERED: NITROGLYCERIN 0.4 MG SL TAB SL PRN (14:00)
[2025-06-15] MEDS ORDERED: ONDANSETRON HCL 4 MG/2 ML VIAL IV PRN (14:00)
[2025-06-15] MEDS: InsuLIN REG 1unit/0.01ml Soln (100units/ml) IV ONE ×2 (14:58→15:52)
[2025-06-15] MEDS: DEXTROSE (50%) 50ML SYRG IV ONE ×2 (14:59→15:47)
[2025-06-15] MEDS: SODIUM BICARB 8.4% 50Meq/50ml SYR Vial IV ONE (14:59)
[2025-06-15] MEDS: CALCIUM GLUC 1,000mg/50ml-NS 50 ML IV ONE (15:47)
[2025-06-15] MEDS: SODIUM BICARB 8.4% 50Meq/50ml SYR INJ IV ONE (15:49)
[2025-06-15] MEDS: FUROSEMIDE 20 MG/2 ML VIAL IV ONE (15:50)
[2025-06-15] MEDS: SODIUM CHLORIDE 0.9% 1,000 ML IV SCH (16:19)
[2025-06-15 19:45] VITALS: PULSE 73; RESP 14; O2SAT 96
[2025-06-15] MEDS ORDERED: DEXTROSE (50%) 50ML SYRG IV PRN (19:45)
[2025-06-15 20:10] VITALS: O2SAT 99
[2025-06-15 20:19] VITALS: BP 164/82; PULSE 72; RESP 20; TEMP 98.5; O2SAT 95
[2025-06-15 20:20] VITALS: BP 182/50; PULSE 50; PULSE 66; RESP 18; RESP 20; O2SAT 98; O2SAT 99
[2025-06-15] MEDS: ALBUTEROL SULF 2.5 MG/0.5ML(0.5%) NEB SOLN NEB PRN (20:28)
[2025-06-15 20:30] VITALS: PULSE 50; RESP 20; O2SAT 98
[2025-06-15] MEDS: InsuLIN REG 1unit/0.01ml Soln (100units/ml) SC SCH (22:00)
[2025-06-15] MEDS: ACCU-CHEK COMFORT CURVE STRIP VI SCH (22:00)
[2025-06-15] MEDS: INSULIN LANTUS (GLARGINE) 1 /0.01ml (100units/ml) SC SCH (22:00)
[2025-06-15] MEDS: MONTELUKAST SODIUM 10 MG TAB PO SCH (23:51)
[2025-06-15] MEDS: ATORVASTATIN 20 MG TAB PO SCH (23:51)
[2025-06-16] VITALS (14 sets, daily range): BP systolic 119–161; BP diastolic 55–67; PULSE 66–90; RESP 16–20; TEMP 97.3–98.8; O2SAT 96–100
[2025-06-16] MEDS: SODIUM ZIRCONIUM CYCL 10 GM PAK PO SCH (02:06)
[2025-06-16] MEDS: LEVOTHYROXINE SODIUM 50 MCG TAB PO SCH (05:47)
[2025-06-16] MEDS: PANTOPRAZOLE 40 MG TAB PO SCH (05:49)
[2025-06-16 09:37] LABS: Hematocrit 30.8 % (36.0-46.0); Hemoglobin 10.0 g/dL (12.2-16.2); Mean Corpuscular Hemoglobin 30.4 pg (28.0-32.0); Mean Corpuscular Volume 93.9 fL (80.0-100.0); Nucleated Red Blood Cells % 0.1 %
[2025-06-16 09:55] LABS: Alanine Aminotransferase 11 U/L (7-40); Albumin 3.4 g/dL (3.2-4.8); Alkaline Phosphatase 100 U/L (46-116); Anion Gap 9 (5-15); BUN/Creatinine Ratio 20.2 (10.0-20.0); Blood Urea Nitrogen 21 mg/dL (9-23); Calcium 9.0 mg/dL (8.7-10.4); Carbon Dioxide 22 mmol/L (20-31); Sodium 144 mmol/L (136-145); Total Protein 5.9 g/dL (5.7-8.2)
[2025-06-16 09:56] LABS: Bilirubin, Total 0.3 mg/dL (0.2-1.0)
[2025-06-16 10:00] LABS: Chloride 113 mmol/L (98-107); Glucose 121 mg/dL (74-106); Potassium 5.2 mmol/L (3.5-5.1)
[2025-06-16] MEDS: ENOXAPARIN SOD 40 MG/0.4 ML SYRINGE SC SCH (10:00)
[2025-06-16] MEDS: FUROSEMIDE 40 MG/4 ML VIAL IV ONE (10:30)
[2025-06-16] MEDS: InsuLIN REG 1unit/0.01ml Soln (100units/ml) IV ONE (10:30)
[2025-06-16] MEDS: POLYETHYLENE GLYCOL 17 GM PWDR PO ONE (10:45)
[2025-06-16] MEDS: ALBUTEROL SULF 2.5 MG/0.5ML(0.5%) NEB SOLN NEB ONE (10:58)
[2025-06-16] MEDS: DEXTROSE (50%) 50ML SYRG IV ONE (11:51)
[2025-06-16] MEDS: SODIUM BICARB 8.4% 50Meq/50ml SYR INJ IV ONE (11:51)
--- NOTE | 2025-06-16 15:23 | DVHPNRES ---
Progress Note Date Seen: Jun 16, 2025 Resident Creating Document: LUIS MANUEL AUGUSTINE RESIDENT Medical Necessity Reason Pt with a Central, PICC or Fol: No Subjective Review of Systems This is a 65-year-old female with past medical use of left breast cancer status post lumpectomy currently follow-up with oncology [facility](Dr. Gutierrez), dm 2, HLD, HTN, hypothyroidism, tonsillectomy [facility] to ER by her oncologist and primary care due to abnormal lab result. During admission, patient stated her potassium level was high(serum potassium lipid-6.5) and labs was drawn on 06/12/2025. Patient use walker at home for ambulation and having history of chronic lymphedema. Patient currently denies any chest pain, SOB, headache, abdominal pain, dysuria or any other acute distress. Past medical history: As above Personal history: Tonsillectomy and breast cancer status post lumpectomy Family history: Mother having lung and esophageal cancer Personal history: Denies any EtOH or illicit drug use, lives with daughter Allergy: Codeine PCP: Dr. Coombs. Home medication: Fluticasone, Advair, guaifenesin, furosemide, metformin, oxybutynin, levothyroxine, famotidine, loratadine, atorvastatin, Basaglar, albuterol inhaler, metoprolol, hydrochlorothiazide, amlodipine.. Patient seen and evaluated in bedside today. Patient denies any acute distress. Potassium level trending down. Follow-up labs. Objective vital signs Vital Sign Date Time Temp Pulse Resp B/P (MAP) Pulse Ox O2 Delivery O2 Flow Rate FiO2 06/16/25 11:06 78 16 100 06/16/25 10:58 Nasal Cannula* 2 28 06/16/25 10:30 136/67 06/16/25 09:00 97.9 97.9 Total Intake and Output 06/15/25 06/15/25 06/16/25 15:00 23:00 07:00 Intake Total 100 ml 200 ml Balance 100 ml 200 ml medications Current Medications Medications Dose Ordered Sig/Bonnie Route Start Time Stop Time Status Last Admin Dose Admin Acetaminophen/ Hydrocodone Bitart 1 tab Q4HP PRN PO 06/15/25 14:00 Hold Ondansetron HCl 4 mg Q4HP PRN IV 06/15/25 14:00 Docusate Sodium 100 mg BIDPRN PRN PO 06/15/25 14:00 Acetaminophen 650 mg Q6HP PRN PO 06/15/25 14:00 Morphine Sulfate 2 mg Q4HPRN PRN IV 06/15/25 14:00 Hold Nitroglycerin 0.4 mg Q5MINP PRN SL 06/15/25 14:00 Morphine Sulfate 2 mg Q30M PRN IV 06/15/25 14:00 Hold Zirconium Oxide 10 gm TID PO 06/15/25 22:00 06/17/25 14:01 06/16/25 05:50 10 GM Insulin Glargine 15 units HS SC 06/15/25 22:00 06/15/25 22:00 15 UNITS Diagnostic Test (Pha) 1 strip ACHS 06/15/25 22:00 06/16/25 11:30 1 STRIP Insulin Human Regular ACHS SC 06/15/25 22:00 06/16/25 11:30 3 UNITS Dextrose 50 ml UD PRN IV 06/15/25 19:45 Pantoprazole Sodium 40 mg DAILY@0600 PO 06/16/25 06:00 06/16/25 05:49 40 MG Levothyroxine Sodium 125 mcg QAM@0600 PO 06/16/25 06:00 06/16/25 05:47 125 MCG Atorvastatin Calcium 40 mg HS PO 06/15/25 22:00 06/15/25 23:51 40 MG Amlodipine Besylate 10 mg DAILY PO 06/16/25 10:00 06/16/25 10:00 10 MG Montelukast Sodium 10 mg HS PO 06/15/25 22:00 06/15/25 23:51 10 MG Enoxaparin Sodium 40 mg DAILY SC 06/16/25 10:00 06/16/25 10:00 40 MG Levalbuterol HCl 0.625 mg Q6HR NEB 06/16/25 18:00 Examination General Appearance: Alert, Oriented X3, Cooperative, No acute distress HEENT: Atraumatic, PERRLA, EOMI, Other (dry mucosa) Respiratory: Clear to auscultation, Normal air movement Cardiovascular: Regular rate, Normal S1, Normal S2, No murmurs Abdominal: Normal bowel sounds, Soft, No tenderness, No hepatospenomegaly, No masses Extremities: No clubbing, No cyanosis, 2+ leg edema bilaterally Skin: No rashes, No breakdown, No significant lesion Neuro: Normal gait, Normal speech, Strength at 5/5 X4 ext, Normal tone, Sensation intact, Cranial nerves 3-12 NL, Reflexes 2+ Psych/Mental Status: Mental status NL, Mood NL laboratory and microbiology Laboratory Tests 06/16/25 08:58 Test 06/16/25 08:58 Range/Units Serum Glucose 121 H 74-106 mg/dL Problem List/Assessment/Plan Problem List/Assessment/Plan # Acute hyperkalemia moderate to severe Was initially 6.5, repeat 5.9, 5.7, trending down 5.2 Continue treatment, correct other electrolytes. keep the patient on telemetry. EKG # LIDYA due to VMN in on the top of CKD stage IIIb Avoid nephrotoxins, close input output monitoring and gentle hydration with IV fluid Trend renal functions # Type II diabetes mellitus with hyperglycemia Patient is on metformin 500 mg daily home med HGB A1c-9.0 continue basal bolus, hold metformin Monitor blood sugar # Hypothyroidism: [id number] mcg daily # Dyslipidemia Atorvastatin LIFESTYLE MODIFICATION #Hypertensive renal disease stage 1-4 Amlodipine Metoprolol Target blood pressure <130/80 Echo # Atopy/seasonal allergy Montelukast # Asthma without exacerbation Currently 2 L oxygen via nasal cannula on and off Comfortably in the room air no wheezing noted. Breathing treatment #Right food wound/diabetic foot Wound care and do not consult. # Left breast cancer status post lumpectomy and chemotherapy Arimidex 1 mg po daily - home meds. #Chronic lymphedema #Morbid obesity, BMI 72.3 Lifestyle modification Diet; carbohydrate consistent DVT prophylaxis: Lovenox GI prophylaxis: Pantoprazole Goals of care discussions. More than 21 minute spent with patient. Full code status. Case discussed with Dr. Staton. Plan discussed with: Patient, Other (Nurse) My Orders My Orders Orders - LUIS MANUEL AUGUSTINE Procedure Category Date Status Time Electrocardigram EKG 06/16/25 Logged 12:44 Levalbuterol Hcl PHA 06/16/25 In Process (Xopenex Medneb) 18:00 Date of Service: Jun 16, 2025 Billing Provider: AMRIK STATON MD Common Visit Codes: [id number] INP/OBS CARE(HIGH) LUIS MANUEL AUGUSTINE Jun 16, 2025 15:23 AMRIK STATON MD Jun 17, 2025 15:24
[2025-06-16] MEDS: INSULIN LISPRO (HUMAN) 100 UNITS/ML ML SC SCH (17:00)
[2025-06-16] MEDS ORDERED: INSULIN LISPRO (HUMAN) 100 UNITS/ML ML SC SCH (17:00)
[2025-06-16] MEDS: LEVALBUTEROL HCL 1.25 MG/3 ML NEB NEB SCH (18:44)
[2025-06-16] MEDS: METOPROLOL TARTRATE 50 MG TAB PO SCH (22:35)
[2025-06-16] MEDS: OXYBUTYNIN CHL 5 MG TAB PO SCH (22:36)
[2025-06-17] VITALS (9 sets, daily range): BP systolic 121–153; BP diastolic 60–75; PULSE 52–81; RESP 18–20; TEMP 97.6–98.5; O2SAT 93–97
--- NOTE | 2025-06-17 05:46 | DVH ---
CHEST RADIOGRAPH INDICATION: sob TECHNIQUE: Single frontal view of the chest was obtained COMPARISON: CHEST PORTABLE on DOS: 11/23/20 FINDINGS: Lines and Tubes: None Lungs: Clear Pleura: No effusion. No pneumothorax. Cardiomediastinal contours: Unremarkable Bones: Unremarkable IMPRESSION: 1. No acute disease.
[2025-06-17 07:17] LABS: Hematocrit 33.5 % (36.0-46.0); Hemoglobin 11.0 g/dL (12.2-16.2); Mean Corpuscular Hemoglobin 30.9 pg (28.0-32.0); Mean Corpuscular Volume 94.0 fL (80.0-100.0); Nucleated Red Blood Cells % 0.1 %
--- NOTE | 2025-06-17 07:53 | DVHSR ---
APPROVED REPORT EXAM: Two-dimensional and M-mode echocardiogram with Doppler and color Doppler. Blood Pressure: 136/67 mmHg INDICATION SOB RISK FACTORS Obesity: Height: 5'2", Weight: 395 DIMENSIONS LVDd 4.8 (3.8-5.7cm) LA (2D) 4.1 (1.9-4.0cm) Aortic Root 3.0 (2.0-3.7cm) LVDs 3.2 (2.5-4.0cm) LA (MM) (1.9-4.0cm) Aortic Cusp Exc 1.6 (1.5-2.0cm) EF (%) 64.0 (55-70%) Rt. Atrium 3.5 (1.9-4.0cm) Asc. Aorta cm IVSd 1.3 (0.7-1.1cm) RV (D) (1.8-2.4cm) PWd 1.3 (0.7-1.1cm) Mitral Valve Mitral Mitral Stenosis E wave 1.28m/s MV Mean GR. mmHg A wave 1.05m/s MV Peak GR. mmHg E/A ratio 1.2 2D MVA cm2 DECEL Time 250ms PRESS 1/2 Time ms Aortic Valve Aortic Valve Aortic Stenosis V1 1.58m/s AO Mean GR. 14mmHg V2 2.57m/s AO Peak GR. 26mmHg LVOT Diameter 2.0 (1.8-2.4cm) Doppler ESTELA 1.93cm2 Pulmonic Valve V2 1.47m/s Tricuspid Valve TR Velocity 3.69m/s RVSP 62mmHg Other Information Technically limited study due to body habitus. Conclusion lvef 60% moderate lvh normal rv function normal atria no severe valve abnormality noted mild aortic sclerosis
[2025-06-17 09:34] LABS: Anion Gap 8 (5-15)
[2025-06-17 09:39] LABS: BUN/Creatinine Ratio 16.5 (10.0-20.0); Blood Urea Nitrogen 21 mg/dL (9-23); Calcium 8.8 mg/dL (8.7-10.4); Carbon Dioxide 25 mmol/L (20-31); Chloride 110 mmol/L (98-107); Glucose 237 mg/dL (74-106); Sodium 143 mmol/L (136-145)
[2025-06-17 09:40] LABS: Potassium 5.3 mmol/L (3.5-5.1)
[2025-06-17] MEDS: INSULIN LANTUS (GLARGINE) 1 /0.01ml (100units/ml) SC SCH (10:07)
[2025-06-17] MEDS: INSULIN LISPRO (HUMAN) 100 UNITS/ML ML SC SCH (10:08)
[2025-06-17] MEDS: POLYETHYLENE GLYCOL 17 GM PWDR PO ONE (11:45)
[2025-06-17 15:16] LABS: Potassium 5.0 mmol/L (3.5-5.1); Sodium 142 mmol/L (136-145)
[2025-06-17 15:17] LABS: Anion Gap 9 (5-15); Carbon Dioxide 23 mmol/L (20-31)
[2025-06-17 15:18] LABS: Calcium 8.6 mg/dL (8.7-10.4); Chloride 110 mmol/L (98-107)
[2025-06-17 15:23] LABS: BUN/Creatinine Ratio 18.4 (10.0-20.0); Blood Urea Nitrogen 23 mg/dL (9-23); Glucose 130 mg/dL (74-106)
[2025-06-17] MEDS ORDERED: POLY335015 PO (17:04)
[2025-06-17] MEDS ORDERED: SODI10PA PO (17:04)
--- NOTE | 2025-06-17 17:30 | DVHDSRES ---
Discharge Summary Date of Admission Resident Creating Document: LUIS MANUEL AUGUSTINE RESIDENT Jun 15, 2025 at 13:52 Date of Discharge: Jun 17, 2025 Labs/Diagnostic Data: Laboratory Results Test 06/17/25 16:33 06/17/25 14:54 06/17/25 06:20 06/16/25 08:58 POC Glucose 148 mg/dl (70-106) Sodium Level 142 mmol/L (136-145) Potassium Level 5.0 mmol/L (3.5-5.1) Chloride Level 110 mmol/L (98-107) Carbon Dioxide Level 23 mmol/L (20-31) Anion Gap 9 (5-15) Blood Urea Nitrogen 23 mg/dL (9-23) Creatinine 1.25 mg/dL (0.550-1.02) Glomerular Filtration Rate Calc 48 mL/min (>90) BUN/Creatinine Ratio 18.4 (10.0-20.0) Serum Glucose 130 mg/dL (74-106) Calcium Level 8.6 mg/dL (8.7-10.4) White Blood Count 5.0 10^3/uL (4.4-10.8) Red Blood Count 3.56 10^6/uL (4.0-5.20) Hemoglobin 11.0 g/dL (12.2-16.2) Hematocrit 33.5 % (36.0-46.0) Mean Corpuscular Volume 94.0 fL (80.0-100.0) Mean Corpuscular Hemoglobin 30.9 pg (28.0-32.0) Mean Corpuscular Hemoglobin Concent 32.9 g/dL (32.0-36.0) Red Cell Distribution Width 14.5 % (11.8-14.3) Platelet Count 223 10^3/uL (140-450) Mean Platelet Volume 7.7 fL (6.9-10.8) Neutrophils (%) (Auto) 75.6 % (37.0-80.0) Lymphocytes (%) (Auto) 12.9 % (10.0-50.0) Monocytes (%) (Auto) 7.7 % (0.0-12.0) Eosinophils (%) (Auto) 3.2 % (0.0-7.0) Basophils (%) (Auto) 0.6 % (0.0-2.0) Neutrophils # (Auto) 3.8 10 ^3/uL (1.6-8.6) Lymphocytes # (Auto) 0.6 10 ^3/uL (0.4-5.4) Monocytes # (Auto) 0.4 10 ^3/uL (0-1.3) Eosinophils # (Auto) 0.2 10 ^3/uL (0-0.8) Basophils # (Auto) 0 10 ^3/uL (0-0.2) Nucleated Red Blood Cells 0.1 % Vitamin B12 Level 301 pg/mL (211-911) Vitamin D 25-Hydroxy 33.9 ng/mL (30.0-100) Total Bilirubin 0.3 mg/dL (0.2-1.0) Aspartate Amino Transferase (AST) 11 U/L (13-40) Alanine Aminotransferase (ALT) 11 U/L (7-40) Alkaline Phosphatase 100 U/L (46-116) B-Type Natriuretic Peptide 81.45 pg/mL (0-100) Total Protein 5.9 g/dL (5.7-8.2) Albumin 3.4 g/dL (3.2-4.8) Test 06/15/25 18:34 06/15/25 12:40 Creatine Kinase 83 U/L (34-145) Hemoglobin A1c 9.0 % A1C (<5.7) Other Laboratory Tests 06/17/25 14:54 06/17/25 06:20 Brief Hx & Hospital Course: This is a 65-year-old female with past medical use of left breast cancer status post lumpectomy currently follow-up with oncology [facility](Dr. Gutierrez), dm 2, HLD, HTN, hypothyroidism, tonsillectomy [facility] to ER by her oncologist and primary care due to abnormal lab result. During admission, patient stated her potassium level was high(serum potassium lipid-6.5) and labs was drawn on 06/12/2025. Patient use walker at home for ambulation and having history of chronic lymphedema. Patient currently denies any chest pain, SOB, headache, abdominal pain, dysuria or any other acute distress. Past medical history: As above Personal history: Tonsillectomy and breast cancer status post lumpectomy Family history: Mother having lung and esophageal cancer Personal history: Denies any EtOH or illicit drug use, lives with daughter Allergy: Codeine PCP: Dr. Coombs. Hospital course: Patient admitted due to persistent hyperkalemia with stable CKD. During admission lab showed potassium level 6.5, >5.9 > 5.7>5.2 >5.0. Patient treated conservatively . EKG showed no T-wave changes, echo on 06/17/2025 showed LVEF 60%, moderate LVH, normal RV function, no severe valve abnormality Patient having bowel movement and denies any chest pain, SOB, cough, headache, palpitation, abdominal pain, dysuria or any other acute distress. X-ray chest no acute cardiopulmonary disease. Patient advised to follow with her primary care physician and oncologist in [facility] as scheduled. On examination 06/17/2025, patient not in acute distress denies any acute complaint. Patient is hemodynamically stable for discharge. Patient has received maximum benefit from inpatient treatment. Time was given to answer patient's questions and concerns in layman terms and explained by RN. Patient verbalized understanding and agreed with treatment and follow-up. Patient was recommended to return to ER if he experiences any worsening symptoms not limited to current symptoms. Follow-up with PCP, oncology, Nephrology within 2 weeks and outpatient clinic Sunday morning within week after discharge. Medications sent to pharmacy. Patient discharged home with home health aid. Physical examination: General Appearance: Alert, Oriented X3, Cooperative, No acute distress HEENT: Atraumatic, PERRLA, EOMI, Other (dry mucosa) Respiratory: Clear to auscultation, Normal air movement Cardiovascular: Regular rate, Normal S1, Normal S2, No murmurs Abdominal: Normal bowel sounds, Soft, No tenderness, No hepatospenomegaly, No masses Extremities: No clubbing, No cyanosis, 2+ leg edema bilaterally Skin: No rashes, No breakdown, No significant lesion Neuro: Normal gait, Normal speech, Strength at 5/5 X4 ext, Normal tone, Sensation intact, Cranial nerves 3-12 NL, Reflexes 2+ Psych/Mental Status: Mental status NL, Mood NL Condition at Discharge: Stable Final Diagnosis/Problems List Persistent hyperkalemia stable CKD. Acute hyperkalemia moderate to severe LIDYA due to VMN in on the top of CKD stage IIIb Type II diabetes mellitus with hyperglycemia Hypothyroidism Left breast cancer status post lumpectomy and chemotherapy Right food wound/diabetic foot Asthma without exacerbation Atopy/seasonal allergy Hypertensive renal disease stage 1-4 Dyslipidemia Chronic lymphedema Morbid obesity, BMI 72.3 Discharge Disposition: Home with Health Services Discharge Instruct/Medications Diet: Consistent carbohydrate Activity: No Restrictions, As Tolerated Follow Up/Referral: PCP Follow-up with outpatient continuity clinic Sunday morning within week after discharge. Follow-up with oncology as scheduled Follow-up nephrology 2-4 weeks after discharge Follow-up nephrology. Scheduled Albuterol Sulfate (Albuterol Sulfate), 0.083 % IN BID, (Reported) Amlodipine Besylate (Amlodipine Besylate), 5 MG PO BID, (Reported) Atorvastatin Calcium (Lipitor), 1 TAB PO DAILY, (Reported) Beclomethasone Dipropionate (Qvar Redihaler), 80 MCG IN BID, (Reported) Cholecalciferol (Vitamin D3), 1 TAB PO DAILY, (Reported) Famotidine (Famotidine), 20 MG PO DAILY, (Reported) Levothyroxine Sodium (Levothyroxine Sodium), 112 MCG PO QAM, (Reported) Loratadine (Claritin Tablet), 10 MG PO DAILY, (Reported) Metformin Hydrochloride (Metformin Hcl), 500 MG PO IBID, (Reported) Metoprolol Tartrate (Metoprolol Tartrate), 100 MG PO BID, (Reported) Montelukast Sodium (Singulair), 10 MG PO DAILY, (Reported) Oxybutynin Chloride (Oxybutynin Chloride), 5 MG PO BID, (Reported) Sodium Zirconium Cyclosilicate (Lokelma), 10 GM PO DAILY Sucralfate (Carafate), 10 ML PO BID Scheduled PRN Polyethylene Glycol 3350 (Miralax), 17 GM PO DAILY PRN Miscellaneous Medications Multiple Vitamins W/ Minerals (Womens 50+ Multi Vitamin), 1 MIN OR, (Reported) Semaglutide (Ozempic), 1 MG SC, (Reported) Discontinued Medications Hydrocortisone (Rectal) (Hydrocortisone), 1 % SD BID PRN Losartan Potassium (Losartan Potassium), 100 MG PO BID, (Reported) Ondansetron (Zofran), 1 TAB PO Q6HR Pantoprazole Sodium Sesquihydr (Protonix), 40 MG PO DAILY Promethazine Hcl (Promethazine Hcl), 1 TAB PO Q6HPRN Discharge Statement: "Patient was advised to return to the ER or call 911 if any headaches, dizziness, shortness of breath, chest pain, abdominal pain, bleeding, fevers, or worsening of medical condition. Patient was counseled about treatment plan, medications, possible side effects, patientverbalized understanding. All questions were answered to the best of my ability. This discharge took greater then 30 minutes in planning, reviewing documentation, counseling the patient, and discussing with other team members." ASSESSMENT ASSESSMENT Assessment Persistent hyperkalemia stable CKD. Visit Coding STANDARD RES Billing Provider: AMRIK PEREZ MD Date of Service if different f: Jun 17, 2025 Common Visit Codes: 59179-WBF/OBS DISCH DAY >30min LUIS MANUEL AUGUSTINE RESIDENT Jun 17, 2025 17:30 AMRIK PEREZ MD Jun 18, 2025 14:40
--- NOTE | 2025-06-18 09:22 | ECG ---
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
--- NOTE | 2025-06-20 10:12 | ECG ---
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
== END 2025-06-17 20:15 | disposition home health service (06) | DRG 640 ==
LOC: ER 12:13 → OVERFLOW 13:52 → TELE-WESTW 22:16 → WEST WING 06-16 13:55 → TELE-WESTW 06-17 07:09
PROVIDERS: ADMIT Student in an Organized Health Care Education/Training Program; ATTEND Student in an Organized Health Care Education/Training Program
DX: E87.5 Hyperkalemia (principal); N17.0 Acute kidney failure with tubular necrosis; N18.4 Chronic kidney disease, stage 4 (severe); Z68.45 Body mass index [BMI] 70 or greater, adult; E11.65 Type 2 diabetes mellitus with hyperglycemia; J45.909 Unspecified asthma, uncomplicated; E03.9 Hypothyroidism, unspecified; I12.9 Hypertensive chronic kidney disease with stage 1 through stage 4 chronic kidney disease, or unspecified chronic kidney disease; S91.301A Unspecified open wound, right foot, initial encounter; E78.5 Hyperlipidemia, unspecified; Z92.21 Personal history of antineoplastic chemotherapy; Z85.3 Personal history of malignant neoplasm of breast; Z79.84 Long term (current) use of oral hypoglycemic drugs; Z79.899 Other long term (current) drug therapy; E66.01 Morbid (severe) obesity due to excess calories; X58.XXXA Exposure to other specified factors, initial encounter; Y93.89 Activity, other specified; Y92.89 Other specified places as the place of occurrence of the external cause; Y99.8 Other external cause status
CPT/HCPCS: 36415; 71045; 80048; 80053; 82306; 82550; 82607; 82962; 83036; 83880; 84132; 85025; 93005; 93306; 94640; 96374; 96375; 99291; G0378; J1815